=== PATIENT | female | born 1960 | race Caucasian/White ===

== ENCOUNTER 2019-09-05 17:28 | Emergency (ER) | payer MEDICAID ==
[~2019-09-05] VITALS: Ht 162.6 cm; Wt 117.9 kg
[2019-09-05 17:31] VITALS: BP 139/65
--- NOTE | 2019-09-05 17:41 | NUR ---
PT WHEELCHAIRED TO BED 4
--- NOTE | 2019-09-05 18:01 | NUR ---
INITAL CONTACT WITH PATIENT -- RECEIVED A 59/F FROM TRIAGE FOR C/O LEFT LOWER LEG PAIN. DENIES INJURY/TRAUMA. MILD SWELLING NOTED TO BILATERAL LOWER FEET/LEGS. WARM TO TOUCH. +CMS INTACT. LIMITED ROM DUE TO PAIN. IN BED FOR MSE.
[2019-09-05 18:17] LABS: BASOPHILS # (AUTO) 0.1 K/uL (0.00-0.22); BASOPHILS % (AUTO) 0.7 % (0.0-2.0); EOSINOPHILS # (AUTO) 0.2 K/uL (0-0.4); EOSINOPHILS % (AUTO) 2.2 % (0.0-4.0); HEMATOCRIT 38.4 % (36-48); HEMOGLOBIN 12.9 g/dL (12.0-16.0); LYMPHOCYTES # (AUTO) 2.5 K/uL (2.5-16.5); LYMPHOCYTES % (AUTO) 28.9 % (20.5-51.1); MEAN CORPUSCULAR HEMOGLOBIN 30 pg (27-31); MEAN CORPUSCULAR HGB CONC 34 g/dL (33-37); MEAN CORPUSCULAR VOLUME 89.6 fL (80-94); MONOCYTES # (AUTO) 0.8 K/uL (0.8-1.0); MONOCYTES % (AUTO) 9.7 % (1.7-9.3); NEUTROPHILS % (AUTO) 58.5 % (42.2-75.2); PLATELET COUNT (AUTO) 301 K/uL (140-450); RED BLOOD CELL COUNT(AUTO) 4.28 MIL/uL (4.20-5.40); RED CELL DISTRIBUTION WIDTH 13.1 % (11.6-13.7); WHITE BLOOD COUNT (AUTO) 8.6 K/uL (4.8-10.8)
[2019-09-05 18:36] LABS: ALBUMIN 2.9 g/dL (3.4-5.0); CARBON DIOXIDE 30.3 mmol/L (21-32); POTASSIUM 3.3 mmol/L (3.5-5.1); PROTHROMBIN TIME 10.2 secs (10.8-13.4); TOTAL BILIRUBIN 0.3 mg/dL (0.0-1.0)
--- NOTE | 2019-09-05 19:04 | NUR ---
SIZED CRUTCHES TO PATIENT
[2019-09-05 19:14] VITALS: BP 139/65
--- NOTE | 2019-09-05 19:14 | NUR ---
Patient discharged with v/s stable. Written and verbal after care instructions given and explained. Patient alert, oriented and verbalized understanding of instructions. Ambulatory with steady gait. All questions addressed prior to discharge. ID band removed. Patient advised to follow up with PMD. Rx of CEPHALEXIN, NAPROXEN given. Patient educated on indication of medication including possible reaction and side effects. Opportunity to ask questions provided and answered.
== END 2019-09-05 19:14 | disposition home or self-care (01) ==
LOC: MED 17:28
DX: L03.116 Cellulitis of left lower limb (principal); I10 Essential (primary) hypertension; Z88.5 Allergy status to narcotic agent; Z98.890 Other specified postprocedural states
CPT/HCPCS: 36415; 80053; 83880; 85025; 85610; 85730; 93005; 93971; 99285; Q0092

== ENCOUNTER 2022-02-28 17:27 | Emergency (ER) | payer MEDICAID ==
[~2022-02-28] VITALS: Ht 151.1 cm; Wt 146.5 kg
[2022-02-28 17:37] VITALS: BP 171/96
--- NOTE | 2022-02-28 17:42 | NUR ---
AMBULATED WITH CANE TO BED 9
--- NOTE | 2022-02-28 17:43 | NUR ---
61 Y/O FEMALE BIB SELF C/O LEFT KNEE PAIN X1 WEEK. DENIES TRAUMA/INJURY. AMBULATES WITH CANE, NO SWELLING NOTED ON THE AREA. pmh: htn allergy: tramadol (rash) med: denies
[2022-02-28] MEDS ORDERED: KETOROLAC 30 MG/ML VIAL IM ONE (18:00)
--- NOTE | 2022-02-28 18:06 | NUR ---
X-Ray at bedside.
--- NOTE | 2022-02-28 18:16 | NUR ---
Ultrasound at bedside.
--- NOTE | 2022-02-28 19:19 | NUR ---
Pt report given to DAVID. Transfer of care at this time.
--- NOTE | 2022-02-28 19:28 | NUR ---
Pt in bed resting with no s/s of distress. A&Ox4. SKin intact. Pt c/o having left extremity pain and swelling. X-Rays and Ultrasound have been done, waiting for results. VSS. Allergic to tramadol. Bed in lowest position.
[2022-02-28] MEDS ORDERED: NAPR-54 PO (19:52)
[2022-02-28] MEDS ORDERED: CEPH-588 PO (19:52)
[2022-02-28 20:17] VITALS: BP 120/76
--- NOTE | 2022-02-28 20:18 | NUR ---
Patient discharged with v/s stable. Written and verbal after care instructions given and explained. Patient verbalized understanding. Ambulatory with steady gait. All questions addressed prior to discharge. Advised to follow up with PMD.
== END 2022-02-28 20:14 | disposition home or self-care (01) ==
LOC: MED 17:27
DX: M17.5 Other unilateral secondary osteoarthritis of knee (principal); I10 Essential (primary) hypertension; Z88.5 Allergy status to narcotic agent; Z79.899 Other long term (current) drug therapy
CPT/HCPCS: 73562; 93971; 96372; 99284; J1885; Q0092

== ENCOUNTER 2023-06-02 01:07 | Emergency (ER) | payer MEDICAID, OTHER ==
[~2023-06-02] VITALS: Ht 162.6 cm; Wt 142.9 kg
[~2023-06-02 01:07] MED LIST: CEPH-588 PO; NAPR-54 PO
[2023-06-02 01:11] VITALS: BP 154/64; PULSE 77; RESP 20; TEMP 97.7; O2SAT 97
[2023-06-02 01:21] VITALS: BP 154/64; PULSE 77; RESP 20; TEMP 97.7; O2SAT 97
[2023-06-02] MEDS ORDERED: oxyCODONE 10 MG TABER PO ONE (02:05)
[2023-06-02] MEDS ORDERED: KETOROLAC 30 MG/ML VIAL IM ONE (02:05)
[2023-06-02] MEDS ORDERED: LID5T TP (04:13)
== END 2023-06-02 04:21 | disposition home or self-care (01) ==
LOC: MED 01:07
DX: M25.562 Pain in left knee (principal); M79.605 Pain in left leg; G89.29 Other chronic pain; I10 Essential (primary) hypertension; Z79.899 Other long term (current) drug therapy; Z79.1 Long term (current) use of non-steroidal anti-inflammatories (NSAID); Z79.2 Long term (current) use of antibiotics; Z88.5 Allergy status to narcotic agent
CPT/HCPCS: 73562; 96372; 99283; J1885